=== PATIENT | male | born 1970 | race Caucasian/White ===

== ENCOUNTER 2020-01-17 17:09 | Emergency (ER) | payer OTHER, SELFPAY ==
[2020-01-17 17:13] VITALS: BP 122/100; PULSE 78; RESP 16; TEMP 36.4; O2SAT 100
--- NOTE | 2020-01-17 17:36 | ED.WOUNDLAC ---
HPI - Wound/Laceration General Chief Complaint: Wound/Laceration Stated Complaint: lt hand pinkie finger laceration Source: patient and RN notes reviewed Limitations: no limitations History of Present Illness HPI narrative: The patient, who is a right-handed corporate attorney, presents with left finger laceration. Patient states he was using gilda and cut his left distal small finger, along the ulnar aspect. Symptoms are mild, better with compression or elevation from a smaller V-shaped, distal based superficial flap avulsion laceration. Patient is uncertain of last immunizations, and desires suture repair. Related Data Allergies Allergy/AdvReac Type Severity Reaction Status Date / Time Sulfa (Sulfonamide Allergy Unknown Skin Verified 01/17/20 17:27 Antibiotics) Reaction Review of Systems Review of Systems: Narrative: General/Constitutional: No weight loss,fever Eyes: N0: Redness,discharge Skin: No Lumps, eruption Neurologic: No Focal Weakness,Sz Hematologic: No: Petechiae/Purpura Psychiatric: No: Suicida ideationl [facility] Social History Social History Smoking status: Never smoker Alcohol intake: current Comments At time of signature, agree with nursing past medical, surgical, social and family history. There is no relevant family history pertinent to the presenting complaint Exam Narrative: Exam Narrative: Appearance: Well appearing, Conjunctiva clear Mouth/Throat: Normal appearing, supple Respiratory: Airway patent, No respiratory distress Skin: Smaller, well approximating, 1 cm superficial V-shaped, distal based flap laceration avulsion of small finger tuft , ulnar aspect ; warm, Dry, Normal color Musculoskeletal: Normal strength (mostly intact, limited flexion/extension by pain), Tenderness ( ulnar, with mild decreased ROM), min swelling, Other (no anterior drawer, no collateral laxity, Neurological: A&O x3, Normal affect Course Vital Signs Vital signs: Vital Signs Temperature 97.5 F L 01/17/20 17:13 Pulse Rate 78 01/17/20 17:13 Respiratory Rate 16 01/17/20 17:13 Blood Pressure 122/100 H 01/17/20 17:13 Pulse Oximetry 100 01/17/20 17:13 Temperature 97.5 F L 01/17/20 17:13 Pulse Rate 78 01/17/20 17:13 Respiratory Rate 16 01/17/20 17:13 Blood Pressure 122/100 H 01/17/20 17:13 Pulse Oximetry 100 01/17/20 17:13 Procedures Laceration Laceration 1: Date: 01/17/20 Site: upper extremity Side (If applicable): left Depth: simple, single layer Local Anesthetic: other anesthetic (LET) Amount of anesthesia used (mL): 1 Pre-repair: irrigated ====== Skin Level ====== ====== Subcutaneous Layer ====== ====== Muscle Layer ====== ====== Tendon Layer ====== Discharge Plan Discharge Clinical Impression: Laceration Patient Disposition: Home, Self-Care Condition: Improved Instructions: Laceration (ED) Additional Instructions: Remove 1 stitch in about 5 to 7 days ,and then Steri-Strip/butterfly tape reinforcement Prescriptions: New mupirocin 2 % ointment 1 applic TOPICAL TID Qty: 30 RF: 0 Follow-up/Referrals: Susan Britton MD [Primary Care Provider] - Discharge Date/Time: 01/17/20 18:20
[2020-01-17] MEDS: TETANUS,DIPHTHERIA,AC PERTUSSIS ADULT (0.5 ML) BOOSTRIX IM (17:52)
== END 2020-01-17 18:20 | disposition home or self-care (01) ==
PROVIDERS: Emergency Provider Emergency Medicine; PCP Family Medicine
DX: S61.217A Laceration without foreign body of left little finger without damage to nail, initial encounter (principal); W27.2XXA Contact with scissors, initial encounter; Z23 Encounter for immunization
CPT/HCPCS: 12001; 90471; 90715; 99213; G0463

== ENCOUNTER 2021-07-12 08:43 | Outpatient (CLI) | payer OTHER, SELFPAY ==
--- NOTE | ~2021-07-12 | MR_ITS ---
EXAMINATION: MR knee RT wo con DATE: 07/12/2021 09:22 INDICATION: Right knee pain TECHNIQUE: Magnetic resonance imaging (MRI) of the right knee was performed without intravenous contr ast. Sequences included coronal PD-weighted FSE, coronal PD-weighted FS FSE, sagittal T2-weighted FS E, sagittal PD-weighted FS FSE and axial PD weighted fat saturated FSE. COMPARISON: None. FINDINGS: Medial compartment: Complex tear which extends obliquely in all 3 planes from the free edge to the peripheral third of th e posterior horn of the medial meniscus. Cartilage loss with smooth surface along the medial rim of t he anterior weightbearing medial femoral condyle with mild underlying nonspecific marrow edema which could be due to overlying chondromalacia, stress reaction related to altered weight distribution resu lting from the meniscal tear or more discrete posttraumatic bone contusion. Lateral compartment: Lateral meniscus is normal. Small partial-thickness chondral fissure at the posterior aspect of the l ateral tibial plateau. Articular cartilage is otherwise normal. Patellofemoral compartment: Deep chondral fissure at the inferior aspect of the medial trochlea Articular cartilage is otherwise normal. Ligaments and tendons: Anterior and posterior cruciate ligaments are normal. The medial collateral ligament and fibular maribell ateral ligament complex are normal. The extensor mechanism is normal. The visualized medial and later al hamstring tendons as well as the iliotibial band are normal. Fluid: Physiologic amount of fluid in the joint space. No loose osteochondral bodies identified. Moderate-si zed multilobulated Sharma's cyst which extends 5.9 cm craniocaudally and measures up to 1.7 x 1.1 cm i n maximal transaxial dimensions. Osseous/other: Siphon the previous noted mild marrow edema at the medial rim of the anterior weightbearing medial fe moral condyle there is normal marrow signal. No fracture or pathologic marrow replacing process. Ther e is increased fluid signal in the superficial suprapatellar fat pad which can be seen with fat pad i mpingement syndrome. IMPRESSION: 1. Complex tear of the posterior horn of the medial meniscus. 2. Mild tricompartmental osteoarthritis with relatively localized regions of moderate grade chondroma lacia in all 3 compartments as detailed above. 3. Moderate-sized Sharma's cyst. 4. Increased fluid signal in the superficial suprapatellar fat pad which can be seen with fat pad imp ingement syndrome. Reviewed, dictated and finalized at location A. IMPRESSION: 1. Complex tear of the posterior horn of the medial meniscus. 2. Mild tricompartmental osteoarthritis with relatively localized regions of mo derate grade chondromalacia in all 3 compartments as detailed above. 3. Moderate-sized Sharma's cyst. 4. Increased fluid signal in the superficial suprapatellar fat pad which can be seen with fat pad impingement syndrome.
== END 2021-07-12 08:44 | disposition home or self-care (01) ==
LOC: ANHIMG 08:45
PROVIDERS: PCP Family Medicine; Visit Provider Nurse Practitioner Adult Health
DX: M25.561 Pain in right knee (principal); S83.231A Complex tear of medial meniscus, current injury, right knee, initial encounter; M16.11 Unilateral primary osteoarthritis, right hip; M94.261 Chondromalacia, right knee; M71.21 Synovial cyst of popliteal space [Baker], right knee
CPT/HCPCS: 73721

== ENCOUNTER 2021-11-01 19:56 | Emergency (ER) | payer OTHER, SELFPAY ==
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
[2021-11-01 20:11] VITALS: BP 134/84; PULSE 80; RESP 18; TEMP 36.7; O2SAT 100
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
[2021-11-01] MEDS: IBUPROFEN 400 MG TABLET 800 MG PO (21:52)
== END 2021-11-01 22:25 | disposition home or self-care (01) ==
PROVIDERS: Emergency Provider Emergency Medicine; PCP Family Medicine
DX: S62.325A Displaced fracture of shaft of fourth metacarpal bone, left hand, initial encounter for closed fracture (principal); V18.0XXA Pedal cycle driver injured in noncollision transport accident in nontraffic accident, initial encounter
CPT/HCPCS: 29130; 73130; 99284; A4565; A9270

== ENCOUNTER 2024-06-17 10:44 | Outpatient (CLI) | payer OTHER, SELFPAY ==
--- NOTE | ~2024-06-17 | XR_ITS ---
EXAMINATION: XR toe 1st LT min 2V DATE: 06/17/2024 11:16 INDICATION: Left great toe pain. TECHNIQUE: 4 views of left great toe were obtained. COMPARISON: None. FINDINGS: Alignment is normal. No fracture. There is mild osteoarthritis of first metatarsophalangeal joint. IMPRESSION: 1. Mild osteoarthritis of first metatarsophalangeal joint. Reviewed, dictated and finalized at location A. [employer]
== END 2024-06-17 10:45 | disposition home or self-care (01) ==
LOC: GOSHIMG 10:44
PROVIDERS: PCP Student in an Organized Health Care Education/Training Program; Visit Provider Student in an Organized Health Care Education/Training Program
DX: M19.072 Primary osteoarthritis, left ankle and foot (principal)
CPT/HCPCS: 73660

== ENCOUNTER 2025-04-04 08:47 | Emergency (ER) | payer OTHER, SELFPAY ==
--- NOTE | 2025-04-04 08:49 | ED.URI ---
HPI - URI/Sore Throat General Chief Complaint: Upper Respiratory Infection Stated Complaint: Sinus Infection Symptoms Time Seen by Provider: 04/04/25 08:49 Source: patient Mode of arrival: ambulatory Limitations: no limitations History of Present Illness HPI Narrative: Patient is a 54-year-old male that presents with 1 week of sinus drainage sinus pressure, cough. has been using Sudafed as cough drops. Patient has been frequently traveling. Patient was getting better and now symptoms are worsening again. Denies any fever, chills, nausea vomiting, diarrhea. Related Data Home Medications ?Medication ?Instructions ?Recorded ?Confirmed ?Last Taken ?Type minoxidil 2.5 mg tablet mg 04/04/25 Unknown History Allergies Allergy/AdvReac Type Severity Reaction Status Date / Time Sulfa (Sulfonamide Allergy Unknown Skin Verified 04/04/25 08:55 Antibiotics) Reaction Review of Systems Review of Systems: All systems reviewed & are unremarkable except as noted in HPI and below Constitutional: Constitutional: Denies chills, Denies fatigue, Denies fever(s), Denies headache(s), Denies malaise and Denies weakness Eyes: Eyes: Denies blurry vision, Denies itchy eyes and Denies loss of vision ENT: Denies otalgia, Denies headache(s), Reports nasal congestion, Denies sinus pain, Reports sinus pressure and Denies sore throat Cardiovascular: Cardiovascular: Denies chest pain, Denies irregular heart rhythm and Denies dyspnea Respiratory: Respiratory: Reports cough and Denies dyspnea Gastrointestinal: Gastrointestinal: Denies abdominal pain, Denies diarrhea, Denies nausea and Denies vomiting Musculoskeletal: Musculoskeletal: Denies back pain, Denies myalgias and Denies arthralgias Integumentary/Breasts: Skin/Breast: Denies pruritus and Denies rash Neurologic: Denies headache(s), Denies loss of vision and Denies weakness Psychiatric: Psychiatric: Reports no additional psychiatric complaints Endocrine: Endocrine: Denies fatigue Allergic/Immunologic: Allergic/Immunologic: Denies itchy eyes PMFSH Past Medical History Medical History (Updated 04/04/25 @ 09:14 by Liliana Tony APRN) Acute sinusitis Family History Family History Mother Hypertension Father Family history of arthritis Grandparent Malignant neoplasm of prostate Family history of lung cancer Other Family history of coronary artery disease Family history of malignant neoplasm of breast Social History Social History Smoking status: Never smoker Alcohol intake: current Alcohol use details: socially Substance use: never Substance use type: does not use Comments At time of signature, agree with nursing past medical, surgical, social and family history. There is no relevant family history pertinent to the presenting complaint. Exam Const: General: cooperative, healthy appearing, comfortable, no acute distress and well nourished Nutritional Appearance: well nourished Orientation/consciousness: patient oriented x3 Limitations: no limitations HENMT: Head: normal to inspection, normocephalic and atraumatic Ears: hearing grossly normal bilaterally, external ears normal, TM's normal bilaterally, EAC's normal and no periauricular adenopathy Face/Nose/Sinus: Normal external nose present, Abnormal mucous membranes and turbinates present erythematous bilateral and diffuse, normal facial exam, face symmetric and Facial tenderness on exam of face and sinuses Face and sinus: normal facial exam and face symmetric Mouth: Yes Normal oral and palatal mucosa present, Yes lip normal, Yes tongue normal, Yes Normal salivary glands and ducts present, Yes oropharynx normal and Yes moist mucous membranes Teeth and gingiva: dentition normal Throat: posterior oropharynx normal, tonsils normal and uvula midline Eyes: General: appearance normal, both eyes and all related structures Alignment and Position: alignment normal and position normal Periorbital: periorbital findings normal Eyelids: eyelids normal Pupils: Equal, round and reactive pupils present Neck: Neck: normal visual inspection, full ROM, no lymphadenopathy and supple Chest: Chest palpation & inspection: normal inspection of the chest and normal palpation of entire chest wall Resp: Effort & Inspection: normal respiratory effort and able to speak in complete sentences Auscultation: clear to auscultation bilaterally, no crackles, no rales, no rhonchi and no wheezes Cardio: Rate: regular rate Rhythm: regular rhythm Heart sounds: S1 normal heart sound present and S2 normal heart sound present GI: Inspection: normal to inspection Skin: General skin exam: normal color and no rashes or lesions noted Neuro: General: patient oriented x3 and moves all extremities Cranial nerves: Yes Equal, round and reactive pupils present Speech: normal speech Gait exam (Neuro): Normal gait present Extrem: General: normal to inspection, full ROM and no edema Psych: Appearance: grossly normal and well kempt Mental Status: mental status grossly normal Speech and movement: Normal speech and movement present Affect: normal affect Attitude: cooperative Thought process: Normal thought process present Course Course Emergency Course: Patient is aware of diagnosis, understands and agrees to treatment plan. Anticipatory guidance given. Patient agrees to follow-up as directed and is aware of reasons to seek care at the emergency department. Portions of this record may have been created with voice recognition software Level of Care: Express Care Visit Vital Signs Vital signs: Vital Signs Temperature 36.1 C L 04/04/25 08:56 Pulse Rate 76 04/04/25 08:56 Respiratory Rate 16 04/04/25 08:56 Blood Pressure 132/81 04/04/25 08:56 Pulse Oximetry 100 04/04/25 08:56 Temperature 36.1 C L 04/04/25 08:56 Pulse Rate 76 04/04/25 08:56 Respiratory Rate 16 04/04/25 08:56 Blood Pressure 132/81 04/04/25 08:56 Pulse Oximetry 100 04/04/25 08:56 [facility] MDM Narrative Medical decision making narrative: Will treat with antibiotics for sinusitis Pt well hydrated appearing, in no respiratory distress, hemodynamically stable. Recommend supportive care. The patient is stable at time of discharge the clinical impression was discussed and the patient was given the opportunity to ask questions, which were addressed as completely as possible given the information available at present. Anticipatory guidance and return to care precautions were discussed and the importance of primary care follow-up was stressed and encouraged. The patient voiced understanding of the plan, indications to return, and the need for follow-up. Exam findings show no acute concerns or changes Patient is appropriate for outpatient treatment and follow-up. Differential Diagnosis Differential Diagnosis: Differential diagnosis considered: Barron virus, strep pharyngitis, allergic rhinitis, upper respiratory tract infection, sinusitis, rhinosinusitis, nasopharyngitis. viral pharyngitis, otitis media, otitis externa, otitis effusion, foreign body, cerumen impaction, viral syndrome, and influenza. Medical Records I have reviewed the following patient records and this information was taken into consideration when formulating the assessment and plan.: previous clinic visits Discharge Plan Discharge Clinical Impression: Sinusitis Qualifiers: Sinusitis location: maxillary Chronicity: acute Recurrence: non-recurrent Qualified Code(s): J01.00 - Acute maxillary sinusitis, unspecified Patient Disposition: Home Condition: Stable Instructions: Sinusitis (ED) Additional Instructions: Symptomatic treatment of a sinus infection aims to relieve symptoms. These treatments do not shorten the duration of illness. Nonprescription pain medications, such as acetaminophen (eg, Tylenol) or ibuprofen (eg, Motrin, Advil), are recommended for pain. Flushing the nose and sinuses with a saline solution several times per day has been proven to decrease pain associated with congestion and shorten the duration of symptoms. Nasal steroids (such as Flonase, 2 sprays in each nostril daily) can help to reduce swelling inside the nose, usually within two to three days. These drugs have few side effects and relieve symptoms in most people. Oral decongestants (pseudoephedrine and phenylephrine) may be helpful if you have associated symptoms of ear pain or fullness. Nasal decongestant sprays, including oxymetazoline (Afrin) and phenylephrine (Wolf-Synephrine), can be used to temporarily treat congestion. However, these sprays should not be used for more than two to three days due to the risk of rebound congestion (when the nose becomes congested constantly unless the medication is used repeatedly), possible addiction, and long-term consequences of frequent use, including persistent nasal dryness and crusting, which is very difficult to treat once it has developed. Medications to thin secretions (such as guaifenesin) may help to clear mucus. Please follow-up with your primary care doctor in the next 1-2 days. If you cannot follow-up with your primary care doctor please go to the ED for any urgent issues. If you have any worsening of symptoms or any other concerns please go to the ED immediately. Patient Language: Indonesian Prescriptions: New amoxicillin-pot clavulanate 875-125 mg tablet 1 tablet PO Q12H 10 Days Qty: 20 0RF No Action minoxidil 2.5 mg tablet Follow-up/Referrals: Susan Britton MD [Primary Care Provider, Family Practice] - 3 Days Time of Disposition: 09:34
[2025-04-04 08:56] VITALS: BP 132/81; PULSE 76; RESP 16; TEMP 36.1; O2SAT 100
== END 2025-04-04 09:36 | disposition home or self-care (01) ==
PROVIDERS: Emergency Provider Nurse Practitioner Family; PCP Family Medicine
DX: J01.00 Acute maxillary sinusitis, unspecified (principal)
CPT/HCPCS: 99213; G0463